=== PATIENT | female | born 1975 | race Caucasian/White ===

== ENCOUNTER 2016-10-08 18:19 | Emergency (ER) | payer MEDICAID ==
[~2016-10-08] VITALS: Ht 165.1 cm; Wt 99.8 kg
[2016-10-08] MEDS ORDERED: IV NORMAL SALINE 1000ML BAG 1,000 ML IV ONE (18:30)
[2016-10-08] MEDS ORDERED: ONDANSETRON PF 4 MG/2 ML VIAL. ONE (18:39)
--- NOTE | 2016-10-08 19:17 | RAD ---
Examination: CT head and cervical spine without contrast HISTORY: History of altered mental status, found down COMPARISON: None available technique: Axial CT images of the head was performed without contrast. Axial CT images of the cervical spine was performed without contrast. Coronal and sagittal images also performed. Exposure: One or more of the following individualized dose reduction techniques were utilized for this examination: 1. Automated exposure control 2. Adjustment of the mA and/or kV according to patient size 3. Use of iterative reconstruction technique FINDINGS: There is no evidence of midline shift. There is no acute intracranial bleed or extra-axial fluid collection identified. The andres-white matter differentiation is maintained. The visualized lateral ventricles, third ventricle, fourth ventricle are appropriate for age. The vertebral body heights are maintained. The alignment of the cervical vertebral bodies grossly appears unremarkable. The lateral masses of C1 are aligned with C2 vertebra. The C2 dens appears intact. No evidence of prevertebral soft tissue swelling identified Mild intervertebral disc bulges identified at C3-C4, C4-C5, C5-C6 vertebral levels likely degeneration. 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 The apical lungs appear clear. IMPRESSION: 1. No acute intracranial findings. 2. No acute fracture the cervical spine. Correlate clinically. Electronically signed by: Juanjose Ugarte MD (10/08/2016 7:14 PM)
[2016-10-08 19:18] LABS: BASO # 0.1 x10^3/uL (0.0-0.2); BASO % 1 % (0-3); EOS % 4 % (0-3); HEMATOCRIT 37.3 % (36.0-47.0); HEMOGLOBIN 12.7 g/dL (12.0-15.5); LYMPH # 4.2 x10^3/uL (1.0-4.8); LYMPH % 43 % (24-48); MEAN CORPUSCULAR HEMOGLOBIN 32 pg (25-35); MEAN CORPUSCULAR HGB CONC 34 g/dL (31-37); MEAN CORPUSCULAR VOLUME 94 fL (79-100); MONO % 4 % (0-9); NEUT % 48 % (31-73); PLATELET COUNT 440 x10^3/uL (140-400); RED BLOOD COUNT 3.96 x10^6/uL (3.50-5.40); RED CELL DISTRIBUTION WIDTH 13.4 % (11.5-14.5); WHITE BLOOD COUNT 9.6 x10^3/uL (4.0-11.0)
[2016-10-08 19:30] LABS: BILIRUBIN,URINE NEGATIVE (NEG); GLUCOSE,URINE NEGATIVE (NEG); NITRITE,URINE NEGATIVE (NEG); PROTEIN,URINE NEGATIVE (NEG-TRACE); UROBILINOGEN,URINE 0.2 mg/dL (0.2 mg/dL)
[2016-10-08 19:40] LABS: BACTERIA,URINE FEW /HPF (0-FEW); RBC,URINE 0 /HPF (0-2); SQUAMOUS EPITHELIAL CELL,UR FEW /LPF
[2016-10-08 19:41] LABS: ALBUMIN 3.6 g/dL (3.4-5.0); CREATININE 0.7 mg/dL (0.6-1.0); GFR 92.7; TOTAL BILIRUBIN 0.3 mg/dL (0.2-1.0); TOTAL PROTEIN 7.3 g/dL (6.4-8.2)
[2016-10-08 19:42] LABS: BARBITURATES NEG (NEG); BENZODIAZEPINES NEG (NEG); CANNABINOIDS NEG (NEG); COCAINE NEG (NEG); METHADONE NEG (NEG); OPIATES POS (NEG); PHENCYCLIDINE NEG (NEG)
[2016-10-08 19:44] LABS: ETHANOL 147 mg/dL (0-10)
[2016-10-08 19:47] LABS: POTASSIUM 2.8 mmol/L (3.5-5.1)
[2016-10-08 19:54] VITALS: BP 138/80
[2016-10-08] MEDS ORDERED: POTASSIUM CHLORIDE 20 MEQ/15 ML ORAL LIQUID. PO ONE (20:00)
--- NOTE | 2016-10-08 20:11 | PHYS DOC ---
Past Medical History Past Medical History: No Pertinent History Past Surgical History: Hysterectomy, Other Additional Past Surgical Histo: GASTRIC BYPASS, RIGHT EAR Alcohol Use: Occasionally Drug Use: None Adult General Chief Complaint Chief Complaint: ALCOHOL INTOXICATION HPI HPI Patient is a 41 year old female who presents with altered mental status and alcohol intoxication. Patient brought by EMS from [facility]. Reportedly friends found her down on the ground and unresponsive. EMS reported GCS of 11. No reported seizure activity. Unknown whether she experienced a fall. She doesn't remember the events prior to being found by her friends. She denies any pain. She denies any complaints. Reportedly drank alcohol throughout the day at the concert. She also had significant stress this morning associated with psychiatric hospitalization of a family member. Review of Systems Review of Systems Constitutional: Denies fever or chills Eyes: Denies change in visual acuity HENT: Denies nasal congestion or sore throat Respiratory: Denies cough or shortness of breath Cardiovascular: Denies chest pain or edema GI: Denies abdominal pain, nausea, vomiting, or diarrhea : Denies dysuria or hematuria Musculoskeletal: Denies back pain or joint pain Integument: Denies rash or skin lesions Neurologic: Denies headache, focal weakness or sensory changes Current Medications Current Medications Current Medications Medications (Trade) Dose Ordered Sig/Anna Start Time Stop Time Status Last Admin Dose Admin Ondansetron HCl (Zofran) 4 mg STK-MED ONCE 10/08/16 18:39 10/08/16 18:40 DC Potassium Chloride (KCl Oral Soln) 40 meq 1X ONCE 10/08/16 20:00 10/08/16 20:01 DC 10/08/16 20:00 40 MEQ Sodium Chloride 1,000 ml @ 1,000 mls/hr 1X ONCE 10/08/16 18:30 10/08/16 19:29 DC 10/08/16 18:42 1,000 MLS/HR Allergies Allergies Allergies Coded Allergies Type Severity Reaction Last Updated Verified NSAIDS (Non-Steroidal Anti-Inflamma Allergy Severe BREATHING PROBLEMS 10/08/16 Yes aspirin Allergy Severe SOB AND ACNE 10/08/16 Yes ciprofloxacin Allergy Severe SEVERE HIVES 10/08/16 Yes levofloxacin Allergy Severe BREATHING PROBLEMS 10/08/16 Yes Influenza Virus Vaccines Allergy Intermediate RASH 10/08/16 Yes Penicillins Allergy Intermediate RASH 10/08/16 Yes Sulfa (Sulfonamide Antibiotics) Allergy Intermediate HIVES, N/V 10/08/16 Yes adhesive tape Allergy Intermediate HIVES 10/08/16 Yes amoxicillin Allergy Intermediate RASH 10/08/16 Yes cephalexin Allergy Intermediate RASH 10/08/16 Yes clindamycin Allergy Intermediate RASH 10/08/16 Yes codeine Allergy Intermediate ITCHING 10/08/16 Yes erythromycin base Allergy Intermediate RASH 10/08/16 Yes hydromorphone Allergy Intermediate HIVES AND ITCHING 10/08/16 Yes paroxetine Allergy Intermediate RASH 10/08/16 Yes povidone-iodine Allergy Intermediate HIVES 10/08/16 Yes soap Allergy Intermediate HIVES 10/08/16 Yes Physical Exam Physical Exam Constitutional: obese, no acute distress, non-toxic appearance. HENT: Normocephalic, atraumatic, bilateral external ears normal, oropharynx moist, nose normal. Eyes: PERRLA, EOMI, conjunctiva normal, no discharge. Neck: supple, no stridor. no midline c-spine tenderness. Cardiovascular: RRR, no murmurs, no edema. Lungs & Thorax: LCTAB, no wheezing, no respiratory distress. Abdomen: soft, nontender, nondistended. Skin: Warm, dry, no erythema, no rash. Back: No spinal tenderness or step offs. Extremities: No deformity or tenderness, no edema. Neurologic: Alert and oriented X 2, CN2-12 grossly intact, symmetric strength/ sensation to UE & LE, poor effort with neuro exam, no focal deficits noted. Psychologic: flat affect, reluctant to participate in exam. Current Patient Data Vital Signs Vital Signs Date Time Temp Pulse Resp B/P (MAP) Pulse Ox O2 Delivery O2 Flow Rate FiO2 10/08/16 19:54 74 138/80 (99) 96 Room Air 10/08/16 18:20 98.8 22 98.8 Lab Values Laboratory Tests Test 10/08/16 18:25 10/08/16 19:05 White Blood Count 9.6 x10^3/uL (4.0-11.0) Red Blood Count 3.96 x10^6/uL (3.50-5.40) Hemoglobin 12.7 g/dL (12.0-15.5) Hematocrit 37.3 % (36.0-47.0) Mean Corpuscular Volume 94 fL (79-100) Mean Corpuscular Hemoglobin 32 pg (25-35) Mean Corpuscular Hemoglobin Concent 34 g/dL (31-37) Red Cell Distribution Width 13.4 % (11.5-14.5) Platelet Count 440 x10^3/uL (140-400) H Neutrophils (%) (Auto) 48 % (31-73) Lymphocytes (%) (Auto) 43 % (24-48) Monocytes (%) (Auto) 4 % (0-9) Eosinophils (%) (Auto) 4 % (0-3) H Basophils (%) (Auto) 1 % (0-3) Neutrophils # (Auto) 4.7 x10^3uL (1.8-7.7) Lymphocytes # (Auto) 4.2 x10^3/uL (1.0-4.8) Monocytes # (Auto) 0.4 x10^3/uL (0.0-1.1) Eosinophils # (Auto) 0.4 x10^3/uL (0.0-0.7) Basophils # (Auto) 0.1 x10^3/uL (0.0-0.2) Sodium Level 147 mmol/L (136-145) H Potassium Level 2.8 mmol/L (3.5-5.1) *L Chloride Level 110 mmol/L (98-107) H Carbon Dioxide Level 23 mmol/L (21-32) Anion Gap 14 (6-14) Blood Urea Nitrogen 6 mg/dL (7-20) L Creatinine 0.7 mg/dL (0.6-1.0) Estimated GFR (Cockcroft-Gault) 92.7 BUN/Creatinine Ratio 9 (6-20) Glucose Level 96 mg/dL (70-99) Calcium Level 9.0 mg/dL (8.5-10.1) Total Bilirubin 0.3 mg/dL (0.2-1.0) Aspartate Amino Transferase (AST) 39 U/L (15-37) H Alanine Aminotransferase (ALT) 38 U/L (14-59) Alkaline Phosphatase 85 U/L (46-116) Troponin I Quantitative < 0.017 ng/mL (0.000-0.055) WS-Hvv-L-Type Natriuretic Peptide 205 pg/mL (0-124) H Total Protein 7.3 g/dL (6.4-8.2) Albumin 3.6 g/dL (3.4-5.0) Albumin/Globulin Ratio 1.0 (1.0-1.7) Salicylates Level < 2.8 mg/dL (2.8-20.0) L Salicylate Last Dose Date Salicylate Last Dose Time Acetaminophen Level 5.09 mcg/ml (10-30) L Acetaminophen Last Dose Date Acetaminophen Last Dose Time Ethyl Alcohol Level 147 mg/dL (0-10) H Urine Collection Type Void Urine Color Yellow Urine Clarity Clear Urine pH 6.0 Urine Specific [place] <=1.005 Urine Protein Negative mg/dL (NEG-TRACE) Urine Glucose (UA) Negative mg/dL (NEG) Urine Ketones (Stick) Negative mg/dL (NEG) Urine Blood Negative (NEG) Urine Nitrite Negative (NEG) Urine Bilirubin Negative (NEG) Urine Urobilinogen Dipstick 0.2 mg/dL (0.2 mg/dL) Urine Leukocyte Esterase Negative (NEG) Urine RBC 0 /HPF (0-2) Urine WBC 1-4 /HPF (0-4) Urine Squamous Epithelial Cells Few /LPF Urine Bacteria Few /HPF (0-FEW) Urine Opiates Screen Pos (NEG) Urine Methadone Screen Neg (NEG) Urine Barbiturates Neg (NEG) Urine Phencyclidine Screen Neg (NEG) Urine Amphetamine/Methamphetamine Neg (NEG) Urine Benzodiazepines Screen Neg (NEG) Urine Cocaine Screen Neg (NEG) Urine Cannabinoids Screen Neg (NEG) Urine Ethyl Alcohol Pos (NEG) Laboratory Tests 10/08/16 18:25 Laboratory Tests 10/08/16 18:25 EKG EKG interpreted by me: NSR rate 97, no acute St/T wave changes, normal intervals, no ectopy.[] Radiology/Procedures Radiology/Procedures PROCEDURE: CT HEAD AND CERVICAL SPINE WO Examination: CT head and cervical spine without contrast HISTORY: History of altered mental status, found down COMPARISON: None available technique: Axial CT images of the head was performed without contrast. Axial CT images of the cervical spine was performed without contrast. Coronal and sagittal images also performed. Exposure: One or more of the following individualized dose reduction techniques were utilized for this examination: 1. Automated exposure control 2. Adjustment of the mA and/or kV according to patient size 3. Use of iterative reconstruction technique FINDINGS: There is no evidence of midline shift. There is no acute intracranial bleed or extra-axial fluid collection identified. The andres-white matter differentiation is maintained. The visualized lateral ventricles, third ventricle, fourth ventricle are appropriate for age. The vertebral body heights are maintained. The alignment of the cervical vertebral bodies grossly appears unremarkable. The lateral masses of C1 are aligned with C2 vertebra. The C2 dens appears intact. No evidence of prevertebral soft tissue swelling identified Mild intervertebral disc bulges identified at C3-C4, C4-C5, C5-C6 vertebral levels likely degeneration. 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 The apical lungs appear clear. IMPRESSION: 1. No acute intracranial findings. 2. No acute fracture the cervical spine. Correlate clinically. Electronically signed by: Juanjose Ugarte MD (10/08/2016 7:14 PM) DICTATED and SIGNED BY: JUANJOSE UGARTE MD DATE: 10/08/161905 [] Course & Med Decision Making Course & Med Decision Making Pertinent Labs and Imaging studies reviewed. (See chart for details) The patient presents with altered mental status and possible fall/syncope. Gave IV fluids. Initially she was drowsy and reluctant to participate with exam. Her mental status improved with observation here and she became oriented 3. No focal deficits were identified. Workup shows no acute injury. She had low potassium which was replaced orally. She felt better, significant other at bedside felt comfortable with taking her home with improved mental status. Recommend rest, by mouth hydration, avoid exposure to excess alcohol or heat. Follow-up with primary care physician in 2-3 days. Return to the emergency department for recurrent syncope, severe chest pain or shortness of breath, focal neurologic deficit, any otherwise worsening condition. Discharged home in stable and improved condition. [] Dragon Disclaimer Dragon Disclaimer This electronic medical record was generated, in whole or in part, using a voice recognition dictation system. Departure Departure Impression: Primary Impression: Alcohol intoxication Additional Impressions: Syncope Altered mental status Disposition: 01 HOME, SELF-CARE Condition: STABLE Referrals: DANIELLE ZAVALA (PCP) Patient Instructions: Alcohol Intoxication, [id number], Hypokalemia Additional Instructions: You were seen in the emergency department today for alcohol intoxication. Tests did not show any serious findings. Potassium was low and he received replacement here. Please drink fluids and rest. Follow-up with primary care doctor in 2-3 days. Return to the emergency department for severe confusion, severe chest pain or shortness of breath, uncontrolled vomiting, difficulty moving arms or legs, any otherwise worsening condition. Problem Qualifiers BRITTON TRIPLETT MD Oct 08, 2016 20:11
--- NOTE | 2016-10-09 07:45 | EKG ---
[facility] [address] [place] [address] Test Date: 2016-10-08 Test Time: 19:00:47 Pat Name: HUMA MORATAYA Department: Room: Gender: F General Office Assistant: : 1975 Requested By: BRITTON TRIPLETT Order Number: [id number] Reading MD: Shukri Jones Measurements Intervals [place] Rate: 97 P: 32 NV: 120 QRS: 36 QRSD: 78 T: -44 QT: 358 QTc: 459 Interpretive Statements SINUS RHYTHM NONSPECIFIC ST-T WAVE CHANGES. T ABNORMALITY IN INFERIOR LEADS RI6.01 Unconfirmed report Compared to ECG 01/22/2012 05:17:37 T-wave abnormality now present Electronically Signed On 10-12-2016 9:47:21 CDT by Shukri Jones
== END 2016-10-08 20:25 | disposition home or self-care (01) ==
LOC: ER 18:19
DX: F10.129 Alcohol abuse with intoxication, unspecified (principal); R55 Syncope and collapse; R41.82 Altered mental status, unspecified; E87.6 Hypokalemia; Z88.6 Allergy status to analgesic agent; Z98.84 Bariatric surgery status; Z88.0 Allergy status to penicillin; Z88.8 Allergy status to other drugs, medicaments and biological substances; Z88.1 Allergy status to other antibiotic agents; Z88.5 Allergy status to narcotic agent; Z91.041 Radiographic dye allergy status; Z91.048 Other nonmedicinal substance allergy status; Y90.9 Presence of alcohol in blood, level not specified
CPT/HCPCS: 36415; 70450; 72125; 80053; 80305; 80320; 81001; 83880; 84484; 85027; 93005; 96360; 99285; J7030; 80329; G0480; G0481